=== PATIENT | female | born 1935 | race Caucasian/White ===

== ENCOUNTER 2018-06-11 06:18 | Day surgery (SDC) | payer MEDICARE, OTHER ==
[~2018-06-11] VITALS: Ht 160 cm; Wt 77.4 kg
[2018-06-11] VITALS (8 sets, daily range): BP systolic 123–143; BP diastolic 64–91
[2018-06-11] MEDS ORDERED: fentaNYL/PF 50MCG/1 ML 2ML syringe IV ONE (06:35)
[2018-06-11] MEDS ORDERED: MIDAZolam 5mg/ml 2ml vial IV ONE (06:36)
[2018-06-11] MEDS ORDERED: diphenhydrAMINE 25mg capsule PO PRN (06:40)
[2018-06-11] MEDS ORDERED: sod bicarbonate 150mEq in D5W 1,150 ML IV ONE (06:40)
[2018-06-11] MEDS ORDERED: LEVO75TA PO (06:50)
[2018-06-11] MEDS ORDERED: OMEP-271 PO (06:51)
[2018-06-11] MEDS ORDERED: MULT-933 PO (06:52)
[2018-06-11] MEDS ORDERED: ASPI81TA52 PO (06:53)
[2018-06-11] MEDS ORDERED: ROSU5TAB PO (06:54)
[2018-06-11] MEDS ORDERED: OXYB5TAB11 PO (06:55)
[2018-06-11] MEDS ORDERED: LOSA50TA3 PO (06:55)
[2018-06-11] MEDS ORDERED: NITR0.4T51 SL (06:56)
[2018-06-11] MEDS ORDERED: PANT-47 PO (06:58)
[2018-06-11 07:20] LABS: BASOPHILS % (AUTO) 0.4 % (0-1); EOSINOPHILS # (AUTO) 0.1 X10'3 (0-0.9); HEMATOCRIT 41.4 % (35.0-45.0); HEMOGLOBIN 14.1 g/dl (12.0-16.0); LYMPHOCYTES # (AUTO) 1.1 X10'3 (1.1-4.8); LYMPHOCYTES % (AUTO) 18.3 % (21-51); MEAN CORPUSCULAR HEMOGLOBIN 32.1 PG (27.0-31.0); MEAN CORPUSCULAR VOLUME 94.4 FL (78-98); MEAN PLATELET VOLUME 8.1 FL (7.4-10.4); MONOCYTES # (AUTO) 0.4 X10'3 (0-0.9); MONOCYTES % (AUTO) 6.7 % (2-12); NEUTROPHILS # (AUTO) 4.6 X10'3 (1.8-7.7); NEUTROPHILS % (AUTO) 72.6 % (42-75); PLATELET COUNT 230 X10'3 (140-440); RED BLOOD COUNT 4.39 X10'6 (4.20-5.60); RED CELL DISTRIBUTION WIDTH 12.2 % (11.5-14.5); WHITE BLOOD COUNT 6.2 X10'3 (4.5-11.0)
[2018-06-11 07:37] LABS: ALBUMIN 3.6 G/DL (3.4-5.0); ANION GAP 11 (8-16); BLOOD UREA NITROGEN 19 MG/DL (7-18); BUN/CREATININE RATIO 17.8 (6.6-38.0); CALCIUM 8.8 MG/DL (8.5-10.1); CHLORIDE 107 MMOL/L (99-107); CREATININE 1.07 MG/DL (0.40-0.90); GLUCOSE 98 MG/DL (70-104); MAGNESIUM 1.9 MG/DL (1.5-2.4); POTASSIUM 3.9 MMOL/L (3.5-5.1); SODIUM 144 MMOL/L (135-145); TOTAL CARBON DIOXIDE 25.6 MMOL/L (24-32); eGFR 49 ML/MIN
[2018-06-11 07:42] LABS: PROTHROMBIN TIME 10.3 SECONDS (9.0-12.0)
[2018-06-11] MEDS ORDERED: midazolam 2 mg/2 ml injection ONE (10:17)
[2018-06-11] MEDS ORDERED: fentaNYL/PF 50MCG/1 ML 2ML syringe ONE (10:23)
== END 2018-06-11 13:55 | disposition home or self-care (01) ==
LOC: SSTAY O 06:18
PROVIDERS: ATTEND Internal Medicine Cardiovascular Disease
DX: R07.89 Other chest pain (principal); E03.9 Hypothyroidism, unspecified; E78.00 Pure hypercholesterolemia, unspecified; K21.9 Gastro-esophageal reflux disease without esophagitis; I10 Essential (primary) hypertension; Z86.718 Personal history of other venous thrombosis and embolism; Z86.711 Personal history of pulmonary embolism; Z79.899 Other long term (current) drug therapy; Z82.49 Family history of ischemic heart disease and other diseases of the circulatory system
CPT/HCPCS: 36415; 80048; 83735; 85025; 85610; 93458; 99152; A6257; J2250; J3010; Q0163; A4620; C1760; C1769; C1894

== ENCOUNTER 2021-03-08 09:43 | Outpatient (CLI) | payer MEDICARE, OTHER ==
[~2021-03-08 09:43] MED LIST: ASPI81TA52 PO; LEVO75TA PO; LOSA50TA3 PO; MULT-933 PO; NITR0.4T51 SL; OMEP-271 PO; OXYB5TAB16 PO; PANT-47 PO; ROSU5TAB PO
[2021-03-08 10:21] LABS: TOTAL HEMOGLOBIN 15.1 G/dl (12.0-16.0)
[2021-03-08] MEDS ORDERED: ticagrelor 90mg tablet ONE (14:00)
== END 2021-03-08 23:59 | disposition home or self-care (01) ==
LOC: RT 09:43
PROVIDERS: ATTEND Internal Medicine Cardiovascular Disease
DX: R94.2 Abnormal results of pulmonary function studies (principal)
CPT/HCPCS: 85018; 94010; 94727; 94729

== ENCOUNTER 2024-10-03 07:54 | Day surgery (SDC) | payer MEDICARE ==
[~2024-10-03] VITALS: Ht 160 cm; Wt 77.2 kg
[2024-10-03] VITALS (10 sets, daily range): BP systolic 110–181; BP diastolic 58–84; PULSE 54–75; RESP 16; TEMP 97.4; O2SAT 95–97
[~2024-10-03 07:54] MED LIST changes: +LOSA-416 PO; -LOSA50TA3 PO; -OXYB5TAB16 PO; +OXYB5TAB21 PO
--- NOTE | 2024-10-03 08:42 | ELECTROCARDIOGRAPH REPORT ---
[facility] Test Date: 2024-10-03 Test Time: 08:38:00 Pat Name: DONA RAI Department: [facility] Patient ID: [facility]-[id number] Room: Gender: F [employer] Helper: : 1935 Requested By: ANNIE PICKETT Order Number: [id number] Reading MD: Dr. Vipul Alvarado Measurements Intervals [place] Rate: 57 P: -2 [place]: 154 QRS: -19 QRSD: 85 T: -28 QT: 456 QTc: 444 Interpretive Statements Sinus rhythm Inferior infarct, age indeterminate Probable anterior infarct, age indeterminate Electronically Signed On 10-04-2024 8:12:[address] Vipul Alvarado Please click the below link to view image of tracing.
[2024-10-03] MEDS ORDERED: BISO-1 PO (08:47)
[2024-10-03] MEDS ORDERED: GABA-535 PO (08:47)
[2024-10-03] MEDS ORDERED: OMEP40CA21 PO (08:47)
[2024-10-03] MEDS ORDERED: RIVA20TA PO (08:47)
[2024-10-03 09:00] LABS: BASOPHILS % (AUTO) 0.4 % (0-1); EOSINOPHILS # (AUTO) 0.1 X10'3 (0-0.9); EOSINOPHILS % (AUTO) 1.9 % (0-6); HEMATOCRIT 40.5 % (35.0-45.0); HEMOGLOBIN 13.5 g/dl (12.0-16.0); LYMPHOCYTES # (AUTO) 1.1 X10'3 (1.1-4.8); LYMPHOCYTES % (AUTO) 15.6 % (21-51); MEAN CORPUSCULAR HEMOGLOBIN 32.2 PG (27.0-31.0); MEAN CORPUSCULAR HGB CONC 33.5 g/dL (33.0-36.5); MEAN CORPUSCULAR VOLUME 96.3 FL (78-98); MEAN PLATELET VOLUME 7.1 FL (7.4-10.4); MONOCYTES # (AUTO) 0.7 X10'3 (0-0.9); MONOCYTES % (AUTO) 10.3 % (2-12); NEUTROPHILS # (AUTO) 5.1 X10'3 (1.8-7.7); NEUTROPHILS % (AUTO) 71.8 % (42-75); PLATELET COUNT 252 X10'3 (140-440); RED CELL DISTRIBUTION WIDTH 14.1 % (11.5-14.5); WHITE BLOOD COUNT 7.1 X10'3 (4.5-11.0)
[2024-10-03 09:15] LABS: PROTHROMBIN TIME 10.6 SECONDS (9.0-12.0)
[2024-10-03] MEDS: normal saline 1,000 ML IV SCH (09:16)
[2024-10-03] MEDS: sodium bicarbonate 1meq/ml syr 150 ML in dextrose 5%-water 1,000 ML IV ONE (09:16)
[2024-10-03 09:35] LABS: ALBUMIN 3.4 G/DL (3.4-5.0); ANION GAP 9 (8-16); BLOOD UREA NITROGEN 20 MG/DL (7-18); BUN/CREATININE RATIO 18.9 (10.0-20.0); CALCIUM 8.9 MG/DL (8.5-10.1); CHLORIDE 106 MMOL/L (99-107); CREATININE 1.06 MG/DL (0.40-0.90); GLUCOSE 142 MG/DL (70-104); MAGNESIUM 2.2 MG/DL (1.5-2.4); POTASSIUM 4.1 MMOL/L (3.5-5.1); SODIUM 142 MMOL/L (135-145); TOTAL CARBON DIOXIDE 27.3 MMOL/L (24-32); eCRCL 31 ML/MIN; eGFR 49 ML/MIN
[2024-10-03] MEDS: diphenhydrAMINE 25mg capsule PO PRN (09:41)
[2024-10-03] MEDS ORDERED: iohexol 350MG/ML 100ml bottle IV ONE (11:52)
[2024-10-03] MEDS ORDERED: LIDOcaine 1% 30ml preserv. free vial ONE (11:52)
[2024-10-03] MEDS ORDERED: heparin 1,000unit/ml 10ml vial 10 ML ONE (11:52)
[2024-10-03] MEDS ORDERED: fentaNYL/PF 50MCG/1 ML 2ML syringe ONE (11:52)
[2024-10-03] MEDS ORDERED: iohexol 350 MG/ML 50ML vial IV ONE (11:52)
[2024-10-03] MEDS ORDERED: midazolam 1 mg/ML 2ml injection ONE (11:52)
[2024-10-03] MEDS ORDERED: hydrALAZINE 20mg/ml inj. ONE (12:59)
[2024-10-03] MEDS: HYDROcodone/acetaminophen 5mg/325mg tablet PO PRN (15:14)
--- NOTE | 2024-10-04 05:56 | CARDIOLOGY REPORT ---
DATE OF SERVICE: 10/03/2024 DICTATING PHYSICIAN: NGUYỄN PICKETT DO CARDIAC CATHETERIZATION REPORT REFERRING SEAFOOD TECHNOLOGY SPECIALIST: Nguyễn Pickett DO CLINICAL HISTORY: This 89-year-old woman has had occasional episodes of supraventricular tachycardia. She is now taking Xarelto. The patient also has increasingly more severe exertional dyspnea associated with chest tightness. A cardiac catheterization in 2019 did not demonstrate evidence for obstructive coronary disease. Because of the nature of her chest discomfort and dyspnea and the fact that this patient plans to leave for [place] within the next 2-3 days, a cardiac catheterization was recommended. PROCEDURES PERFORMED: * Left heart catheterization. * Left ventriculography. * Selective coronary arteriography. * IFR. * 45 minutes conscious sedation and supervision. * Percutaneous arteriotomy closure (Mynx). DESCRIPTION OF PROCEDURE: The patient was sedated with fentanyl and Versed. She was then prepared and draped in the usual manner. The right inguinal area was infiltrated with 1% lidocaine using a micropuncture set in a Seldinger technique. A 7-Pakistani sheath was placed in the common femoral artery. Left heart catheterization and left ventriculography were performed using a 6-Pakistani pigtail catheter. Coronary arteriography was performed using 6-Pakistani #4 left and right Keyla catheters. IFR was performed using the existing right Keyla diagnostic catheter. After appropriate equalization, a questionable area in the mid right coronary was crossed and IFR was found to be 1.00. The lesion was visually estimated to not be more severe than 40%; however, it was irregular in appearance, prompting the use of IFR. The arterial sheath was removed and hemostasis was achieved with a Mynx device. RESULTS: Hemodynamic data: The left ventricular end diastolic pressure was 21 mmHg. There was no gradient across the aortic valve. LEFT VENTRICULOGRAM: The left ventriculogram was technically satisfactory. The visually estimated ejection fraction was 50%. CORONARY ARTERIOGRAPHY: The coronary arteriograms were technically satisfactory. The patient had a right dominant system. LEFT MAIN CORONARY ARTERY: The left main was a large, unobstructed vessel trifurcating into left anterior descending, intermediate and circumflex coronary artery. LEFT ANTERIOR DESCENDING CORONARY ARTERY: The LAD was a medium-sized vessel with a transapical distribution. There were no diagonals emanating from this vessel. There were no obstructive lesions. However, the proximal and part of the mid vessel was narrowed by about 30%. INTERMEDIATE ARTERY: The intermediate was a [id number] bifurcated vessel. The anterior-most branch appeared to have 2 areas of about 50% narrowing near the origin, but there were no high-grade stenoses in this vessel. CIRCUMFLEX CORONARY ARTERY: The circumflex was a large unobstructed vessel. There was a tiny first obtuse marginal, a small second obtuse marginal, a medium-sized third obtuse marginal and a small caliber posterolateral branch. There were no obstructive lesions in the circumflex coronary artery. RIGHT CORONARY ARTERY: The right coronary was a large main stem vessel. There was a small to medium-sized posterior descending branch, a medium-sized first posterolateral, and two small short and very small diameter terminal posterolateral branches. The proximal mid right coronary overlapping the first acute marginal branch appeared to be narrowed by about 40%; however, IFR was unremarkable at 1.00. CONCLUSIONS: * No evidence for obstructive coronary artery disease. * Nonobstructive lesions were two 40% to 50% areas of narrowing in a subbranch involving the intermediate artery and about a 30% narrowing in the proximal LAD. There was also about a 40% narrowing in the proximal mid right coronary, but IFR demonstrated that it was not hemodynamically significant. * Left ventricular function is mildly reduced. There was very mild diffuse hypokinesis. The ejection fraction was estimated at 50%. PLAN: Ongoing medical therapy. NGUYỄN PICKETT DO TID: [id number] RECEIPT: [id number] /TAR
== END 2024-10-03 17:00 | disposition home or self-care (01) ==
LOC: SSTAY O 07:54
PROVIDERS: ATTEND Internal Medicine Cardiovascular Disease
DX: R07.89 Other chest pain (principal); I25.10 Atherosclerotic heart disease of native coronary artery without angina pectoris; E03.9 Hypothyroidism, unspecified; E78.00 Pure hypercholesterolemia, unspecified; K21.9 Gastro-esophageal reflux disease without esophagitis; Z79.899 Other long term (current) drug therapy; Z86.718 Personal history of other venous thrombosis and embolism; Z98.890 Other specified postprocedural states
CPT/HCPCS: 36415; 80048; 83735; 85025; 85610; 93005; 93458; 93571; 99152; 99153; A6258; C1725; C1769; C1894; J0360; J1644; J2003; J2250; J3010; J3490; J7030; J7070; Q0163; Q9967